=== PATIENT | female | born 1970 | race Caucasian/White ===

== ENCOUNTER → 2018-02-21 | Outpatient (CLI) | payer OTHER ==
[~2018-02-21] MED LIST: DEPRESSION MED; DESYREL100 MG PO; LORTAB 5 MG/5001 TA1 PO
--- NOTE | ~2018-02-21 | SLE ---
[facility] [place] [address] POLYSOMNOGRAPHY STUDY Name: HALI SAMSON [id number] Admission: 02/21/18 Attend Phys: Nas Acuna MD Discharge: Date of : 68 Report #: [id number] THIS REPORT FOR: //name// CC: Nas Quintana MD DATE OF SERVICE: 02/21/2018 ATTENDING PHYSICIAN: Dr. Dale Quintana. The patient is a 47-year-old who weighs 142 pounds and is 63 inches tall with a BMI of 25.2. The patient's Braddock score was 7. The patient underwent a diagnostic sleep study at [facility]. During the night study, the patient spent 405 minutes in bed and slept for 312 minutes with a sleep efficiency of 77%. Sleep latency was 27.8 minutes with a REM latency of 238 minutes. Overall sleep architecture showed increased stage 1 and stage 2 sleep, normal slow wave and reduced REM sleep, which was 11% of the total sleep time. During the night study, the patient had no apneas and 7 hypopneas. The patient's apnea-hypopnea index for the entire night was only 1.3 per hour. REM index was 5.1 per hour and supine index was 1.6 per hour. EKG monitoring revealed normal sinus rhythm. Average heart rate was 69 beats per minute with a maximum 85 beats per minute. PVCs were seen during the night of the study. PACs were seen as well. PLMS were seen at an index of 58 per hour and 6 per hour caused EEG arousals. Nocturnal oximetry study revealed an average oxygen saturation of 95% with the lowest of 86%. Only 0.2 minutes were spent at an oxygen saturation of less than 89%. Due to low AHI, the patient did not meet the split night criteria for CPAP initiation. IMPRESSION: 1. No clinically significant sleep disordered breathing. The patient's apnea-hypopnea index for the entire night was 1.3 per hour. 2. No clinically significant nocturnal hypoxia. 3. Severe periodic limb movements of sleep. 4. Abnormal EKG with premature ventricular contractions. RECOMMENDATIONS: [facility] [address] [place] [address] POLYSOMNOGRAPHY STUDY Name: CRISTOPHER QUIROZHALI Room #: REG [facility]#: [id number] Admission: 02/21/18 Attend Phys: Nas Acuna MD Discharge: Date of : 68 Report #: [id number] 1. The patient did not meet the split night criteria for CPAP initiation due to very low AHI. 2. The patient should also be further evaluated for symptoms of restless legs during the day. 3. Follow up with Cardiology if clinically indicated regarding abnormal EKG. 4. Avoid [employer] depressants. <ELECTRONICALLY SIGNED> By: Nas Acuna MD 02/23/18 2220 99 10 Nas Acuna MD /oneyda
== END ==
LOC: SLEEPLAB 01-31 10:19
DX: G47.61 Periodic limb movement disorder (principal); R94.31 Abnormal electrocardiogram [ECG] [EKG]

== ENCOUNTER → 2019-08-06 | Outpatient (CLI) | payer OTHER | LOC: RAD 11:31 | DX: J45.20 Mild intermittent asthma, uncomplicated (principal) ==